=== PATIENT | male | born 1980 | race Caucasian/White ===

== ENCOUNTER → 2023-09-25 | Outpatient (CLI) | payer OTHER | LOC: M RAD 14:11 | PROVIDERS: ATTEND Otolaryngology | DX: J33.0 Polyp of nasal cavity (principal) ==

== ENCOUNTER 2023-12-02 10:23 | Day surgery (SDC) | payer OTHER ==
[~2023-12-02] VITALS: Ht 180.3 cm; Wt 110.9 kg
[~2023-12-02 10:23] MED LIST: MULTTAB61 PO; OMEP40CA4 PO; TEST200I14 IM
[2023-12-02] MEDS ORDERED: dexmedeTOMIDine (4MCG/ML)200MCG/50ML BTL (PRECEDEX) As Ordered ONE (10:53)
[2023-12-02] MEDS ORDERED: LR 1,000 ML IV SCH (10:55)
[2023-12-02] MEDS ORDERED: SUGAMMADEX SODIUM 500 MG/5 ML VIAL (BRIDION) As Ordered ONE (12:26)
[2023-12-02] MEDS ORDERED: propofoL 200 MG/20 ML VIAL As Ordered ONE (12:28)
[2023-12-02] MEDS ORDERED: fentaNYL 250 MCG/5 ML INJECTION As Ordered ONE (12:29)
[2023-12-02] MEDS ORDERED: ROCURONIUM BROMIDE 50MG/5ML VIAL As Ordered ONE (12:29)
[2023-12-02] MEDS ORDERED: MIDAZOLAM INJ 2MG/2ML VIAL As Ordered ONE (12:30)
[2023-12-02] MEDS: COCAINE 4% 4ML NASAL SOLUTION BTL As Ordered ONE (15:13)
[2023-12-02] MEDS ORDERED: PHENYLephrine 500MCG 5ML (100MCG/ML) SYRINGE As Ordered ONE (15:17)
[2023-12-02] MEDS ORDERED: ACETAMINOPHEN 1000MG 100ML IV BAG As Ordered ONE (15:40)
[2023-12-02] MEDS ORDERED: ONDANSETRON 4MG 2ML VIAL As Ordered ONE (15:53)
[2023-12-02] MEDS: LIDOCAINE W/EPINEPHRINE 1% 20ML VIAL As Ordered ONE (16:35)
[2023-12-02] MEDS: OXYMETAZOLINE 0.05% NASAL SPRAY (AFRIN) As Ordered ONE (16:38)
[2023-12-02] MEDS ORDERED: METOCLOPRAMIDE INJ 10MG/2ML VIAL IV PRN (17:00)
[2023-12-02] MEDS ORDERED: ONDANSETRON 4MG 2ML VIAL IV PRN (17:00)
[2023-12-02] MEDS ORDERED: PROMETHAZINE 25MG/ML 1ML VIAL IV PRN (17:00)
[2023-12-02] MEDS: fentaNYL 100 MCG/2 ML INJECTION IV PRN (17:00)
[2023-12-02] MEDS: HYDROMORPHONE HCL 0.5 MG/ 0.5 ML SYRINGE IV PRN (17:05)
[2023-12-02] MEDS: ONDANSETRON 4MG 2ML VIAL IV PRN (17:08)
[2023-12-02] MEDS: oxyCODONE 5MG TAB PO PRN (17:09)
[2023-12-02 17:50] VITALS: BP 111/70; TEMP 97.4; O2SAT 94
== END 2023-12-02 18:15 | disposition home or self-care (01) ==
LOC: M SDC 10:23 → EDUNIT# 11:45 → M SDC 18:15
PROVIDERS: ATTEND Otolaryngology
DX: J32.9 Chronic sinusitis, unspecified (principal); J33.0 Polyp of nasal cavity; B18.2 Chronic viral hepatitis C; K21.9 Gastro-esophageal reflux disease without esophagitis; Z79.899 Other long term (current) drug therapy; F17.218 Nicotine dependence, cigarettes, with other nicotine-induced disorders; F10.11 Alcohol abuse, in remission
CPT/HCPCS: 31253; 31259; 31267; 88305; C9143; J0131; J1100; J1170; J2250; J2371; J2405; J3010